=== PATIENT | male | born 1995 | race African-American/Black ===

== ENCOUNTER 2017-05-07 23:27 | Emergency (ER) | payer MEDICAID ==
[~2017-05-07] VITALS: Ht 180.3 cm; Wt 68.0 kg
[~2017-05-07 23:27] MED LIST: ADVAIR
[2017-05-08] MEDS ORDERED: LORAZEPAM 2MG/ML CPJ IM ONE ×4 (00:30→11:30)
[2017-05-08 00:54] LABS: BASOPHILS % 0.2 % (0.0-2.0); EOSINOPHILS % 1.7 % (0.0-5.0); HEMATOCRIT. 35.1 % (42.0-52.0); LYMPHOCYTES % 13.5 % (20.0-50.0); MEAN CORPUSCULAR HEMOGLOBIN 26.7 pg (28.0-32.0); MEAN CORPUSCULAR VOLUME 84.8 fL (80.0-94.0); MEAN PLATELET VOLUME 7.8 fl (7.4-10.4); MONOCYTES % 8.6 % (2.0-8.0); PLATELET 315 x1000/uL (130-400); RED BLOOD CELL COUNT 4.14 mill/uL (4.7-6.1); RED CELL DISTRIBUTION WIDTH 14.2 % (11.6-14.6)
[2017-05-08 01:17] LABS: CARBON DIOXIDE 27 mEq/L (21-32); CHLORIDE 108 mEq/L (98-107); ETHANOL BLOOD < 10 mg/dL
[2017-05-08] MEDS ORDERED: HALOPERIDOL LACTATE 5MG/ML VIAL IM ONE (03:00)
[2017-05-08 07:55] LABS: GLUCOSE URINE NEGATIVE (NEGATIVE); KETONES URINE NEGATIVE (NEGATIVE); LEUKOCYTE ESTERASE URINE TRACE (NEGATIVE); NITRITE URINE NEGATIVE (NEGATIVE); OCCULT BLOOD URINE NEGATIVE (NEGATIVE); PH URINE 6.5 (4.5-8.0); PROTEIN URINE NEGATIVE (NEGATIVE); SPECIFIC GRAVITY URINE 1.017 (1.005-1.030)
[2017-05-08 07:56] LABS: CLARITY URINE CLEAR (CLEAR); COLOR URINE YELLOW (YELLOW)
[2017-05-08 08:07] LABS: *AMPHETAMINES SCREEN URINE NEGATIVE (NEGATIVE); *BARBITURATES SCREEN URINE NEGATIVE (NEGATIVE); *BENZODIAZEPINES SCREEN URINE NEGATIVE (NEGATIVE); *COCAINE SCREEN URINE NEGATIVE (NEGATIVE); CANNABINOID URINE SCREEN PRESUMTIVE POSITIVE (NEGATIVE); METHADONE URINE SCREEN NEGATIVE (NEGATIVE); OPIATES URINE SCREEN NEGATIVE (NEGATIVE); PHENCYCLIDINE URINE SCREEN NEGATIVE (NEGATIVE)
[2017-05-08 21:10] VITALS: BP 108/64
== END 2017-05-08 21:11 | disposition home or self-care (01) ==
LOC: ER 23:30
DX: F23 Brief psychotic disorder (principal); F12.10 Cannabis abuse, uncomplicated; F15.10 Other stimulant abuse, uncomplicated; F91.8 Other conduct disorders; R51 Headache; D72.829 Elevated white blood cell count, unspecified; F90.9 Attention-deficit hyperactivity disorder, unspecified type; Z78.1 Physical restraint status; F17.210 Nicotine dependence, cigarettes, uncomplicated; J45.909 Unspecified asthma, uncomplicated; Z88.0 Allergy status to penicillin
CPT/HCPCS: 36415; 80053; 80305; 80307; 80329; 81001; 85025; 96372; 99284; G0482; J2060; Z7610; J1630

== ENCOUNTER 2018-11-06 17:47 | Emergency (ER) | payer SELFPAY ==
[~2018-11-06] VITALS: Ht 182.9 cm; Wt 75.0 kg
[2018-11-06 21:18] VITALS: BP 109/76
== END 2018-11-06 20:52 | disposition left against medical advice (07) ==
LOC: ER 17:47
DX: Z53.21 Procedure and treatment not carried out due to patient leaving prior to being seen by health care provider (principal)

== ENCOUNTER 2018-11-07 04:04 | Emergency (ER) | payer SELFPAY ==
[~2018-11-07] VITALS: Ht 182.9 cm; Wt 71.0 kg
[2018-11-07 07:11] LABS: BASOPHILS % 0.2 % (0.0-2.0); EOSINOPHILS % 4.2 % (0.0-5.0); HEMATOCRIT. 47.6 % (42.0-52.0); HEMOGLOBIN. 15.5 g/dL (14.0-18.0); LYMPHOCYTES % 18.7 % (20.0-50.0); MEAN CORPUSCULAR HEMOGLOBIN 27.8 pg (28.0-32.0); MEAN CORPUSCULAR VOLUME 85.3 fL (80.0-94.0); MONOCYTES % 13.2 % (2.0-8.0); NEUTROPHILS % 63.7 % (40.0-76.0); PLATELET 269 x1000/uL (130-400); RED BLOOD CELL COUNT 5.58 mill/uL (4.7-6.1); RED CELL DISTRIBUTION WIDTH 14.7 % (11.6-14.6)
[2018-11-07 07:16] LABS: CHLORIDE 103 mEq/L (98-107)
[2018-11-07 07:20] LABS: ETHANOL BLOOD < 10 mg/dL
[2018-11-07 12:33] LABS: CLARITY URINE TURBID (CLEAR); COLOR URINE YELLOW (YELLOW); KETONES URINE NEGATIVE (NEGATIVE); LEUKOCYTE ESTERASE URINE NEGATIVE (NEGATIVE); NITRITE URINE NEGATIVE (NEGATIVE); OCCULT BLOOD URINE NEGATIVE (NEGATIVE); PH URINE 7.5 (4.5-8.0); PROTEIN URINE NEGATIVE (NEGATIVE); SPECIFIC GRAVITY URINE 1.018 (1.005-1.030)
[2018-11-07 13:16] LABS: *AMPHETAMINES SCREEN URINE NEGATIVE (NEGATIVE); *BARBITURATES SCREEN URINE NEGATIVE (NEGATIVE); *COCAINE SCREEN URINE NEGATIVE (NEGATIVE)
[2018-11-07 13:17] LABS: *BENZODIAZEPINES SCREEN URINE NEGATIVE (NEGATIVE); CANNABINOID URINE SCREEN PRESUMTIVE POSITIVE (NEGATIVE); METHADONE URINE SCREEN NEGATIVE (NEGATIVE); OPIATES URINE SCREEN NEGATIVE (NEGATIVE); PHENCYCLIDINE URINE SCREEN NEGATIVE (NEGATIVE)
[2018-11-07 15:22] VITALS: BP 113/59
== END 2018-11-07 15:25 | disposition home or self-care (01) ==
LOC: ER 04:04
DX: F15.10 Other stimulant abuse, uncomplicated (principal); F12.10 Cannabis abuse, uncomplicated; F31.9 Bipolar disorder, unspecified; J45.909 Unspecified asthma, uncomplicated; F17.210 Nicotine dependence, cigarettes, uncomplicated; Z88.0 Allergy status to penicillin
CPT/HCPCS: 36415; 80053; 80305; 80307; 80329; 81003; 85025; 99283; G0482

== ENCOUNTER 2018-12-09 00:20 | Emergency (ER) | payer SELFPAY ==
[~2018-12-09] VITALS: Ht 182.9 cm; Wt 151.0 kg
[2018-12-09 00:53] VITALS: BP 125/81
== END 2018-12-09 06:35 | disposition left against medical advice (07) ==
LOC: ER 06:34
DX: Z53.21 Procedure and treatment not carried out due to patient leaving prior to being seen by health care provider (principal)

== ENCOUNTER 2019-02-04 22:27 | Emergency (ER) | payer MEDICAID ==
[~2019-02-04] VITALS: Ht 182.9 cm; Wt 81.0 kg
[2019-02-04 22:39] VITALS: BP 116/69
== END 2019-02-05 01:00 | disposition left against medical advice (07) ==
LOC: ER 22:27
DX: Z53.21 Procedure and treatment not carried out due to patient leaving prior to being seen by health care provider (principal)

== ENCOUNTER 2019-02-05 05:49 | Emergency (ER) | payer MEDICAID ==
[~2019-02-05] VITALS: Ht 170.2 cm
[2019-02-05 05:55] VITALS: BP 0/0
== END 2019-02-05 16:20 | disposition left against medical advice (07) ==
LOC: ER 05:49
DX: Z53.21 Procedure and treatment not carried out due to patient leaving prior to being seen by health care provider (principal)

== ENCOUNTER 2019-02-07 08:20 | Emergency (ER) | payer MEDICAID ==
[~2019-02-07] VITALS: Ht 182.9 cm; Wt 72.0 kg
[2019-02-07 08:35] VITALS: BP 127/77
== END 2019-02-07 09:22 | disposition left against medical advice (07) ==
LOC: ER 08:20
DX: J45.909 Unspecified asthma, uncomplicated (principal); Z53.21 Procedure and treatment not carried out due to patient leaving prior to being seen by health care provider

== ENCOUNTER 2019-03-23 05:49 | Emergency (ER) | payer MEDICAID ==
[~2019-03-23] VITALS: Ht 182.9 cm; Wt 75.0 kg
[2019-03-23 06:04] VITALS: BP 122/75
== END 2019-03-23 07:47 | disposition left against medical advice (07) ==
LOC: ER 05:49
DX: R10.9 Unspecified abdominal pain (principal); Z53.21 Procedure and treatment not carried out due to patient leaving prior to being seen by health care provider

== ENCOUNTER 2019-08-09 16:30 | Emergency (ER) | payer MEDICAID | END 2019-08-09 17:53 | disposition left against medical advice (07) | LOC: ER 17:17 | DX: Z53.21 Procedure and treatment not carried out due to patient leaving prior to being seen by health care provider (principal) ==

== ENCOUNTER 2020-12-22 01:41 | Emergency (ER) | payer MEDICAID ==
[~2020-12-22] VITALS: Ht 182.9 cm; Wt 75.0 kg
[2020-12-22 01:48] VITALS: BP 122/57
[2020-12-22] MEDS ORDERED: VISCOUS LIDOCAINE 2% 15 ML UDC PO ONE (02:15)
[2020-12-22] MEDS ORDERED: MAGNESIUM/ALUMINUM HYDROXIDE/SIMETHICONE 30ML UDC PO ONE (02:15)
[2020-12-22] MEDS ORDERED: DICYCLOMINE 10 MG/5 ML ORAL SYR PO ONE (02:15)
== END 2020-12-22 02:47 | disposition home or self-care (01) ==
LOC: ER 01:41
DX: R10.13 Epigastric pain (principal); Z87.19 Personal history of other diseases of the digestive system; J45.909 Unspecified asthma, uncomplicated
CPT/HCPCS: 93005; 99284

== ENCOUNTER 2023-01-05 17:42 | Emergency (ER) | payer MEDICAID, OTHER ==
[~2023-01-05] VITALS: Ht 182.9 cm; Wt 75.0 kg
[2023-01-05 18:01] VITALS: BP 120/87
[2023-01-05] MEDS ORDERED: BACITRACIN ZINC OINT UDPKT TOP ONE (22:15)
== END 2023-01-05 22:26 | disposition home or self-care (01) ==
LOC: ER 17:42
DX: S01.331A Puncture wound without foreign body of right ear, initial encounter (principal); W22.8XXA Striking against or struck by other objects, initial encounter; Y93.89 Activity, other specified; Y92.89 Other specified places as the place of occurrence of the external cause; Y99.8 Other external cause status; J45.909 Unspecified asthma, uncomplicated
CPT/HCPCS: 99282

== ENCOUNTER 2024-12-03 22:42 | Emergency (ER) | payer MEDICAID ==
[~2024-12-03] VITALS: Ht 182.9 cm; Wt 75.5 kg
[2024-12-03 22:56] VITALS: TEMP 98; O2SAT 99
[2024-12-04] MEDS ORDERED: LIDOCAINE HCL 1% 20ML VIAL INFIL ONE (01:00)
[2024-12-04 02:39] VITALS: BP 123/81; PULSE 77; RESP 18; O2SAT 98
== END 2024-12-04 02:40 | disposition home or self-care (01) ==
LOC: ER 22:42
DX: S61.411A Laceration without foreign body of right hand, initial encounter (principal); X58.XXXA Exposure to other specified factors, initial encounter; Y93.89 Activity, other specified; Y92.89 Other specified places as the place of occurrence of the external cause; Y99.8 Other external cause status
CPT/HCPCS: 12001; 73090; 73100; 73120; 99283; 99285